=== PATIENT | female | born 1955 | race Caucasian/White ===

== ENCOUNTER → 2018-09-25 07:55 | Outpatient (CLI) | payer MEDICAID | END | disposition home or self-care (01) | LOC: D.US 07:55 | DX: R10.11 Right upper quadrant pain (principal) ==

== ENCOUNTER 2019-03-11 09:50 | Emergency (ER) | payer MEDICAID ==
[~2019-03-11] VITALS: Ht 160 cm; Wt 43.1 kg
[2019-03-11 09:53] VITALS: Ht 160 cm; Wt 43.1 kg
[2019-03-11] MEDS ORDERED: XANAX2 MG PO (09:57)
[2019-03-11] MEDS ORDERED: SYNTHROID112 MCG PO (09:57)
[2019-03-11] MEDS ORDERED: NEURONTIN 300300 MG PO (09:58)
[2019-03-11] MEDS ORDERED: ULTRAM50 MG PO (09:58)
[2019-03-11] MEDS ORDERED: TRAZODONE HCL150 MG PO (09:58)
[2019-03-11] MEDS ORDERED: VITAMIN D10000 UNI1 PO (09:59)
[2019-03-11] MEDS ORDERED: VITAMIN B-12100 MCG PO (09:59)
[2019-03-11] MEDS ORDERED: HEMP OIL (10:00)
[2019-03-11] MEDS ORDERED: L-ARGININE500 MG PO (10:01)
[2019-03-11] MEDS ORDERED: ASHWAGANDHA (10:01)
[2019-03-11 10:53] LABS: APPEARANCE CLOUDY (CLEAR); BACTERIA MODERATE /hpf (NONE SEEN); BILIRUBIN NEGATIVE (NEGATIVE); COLOR YELLOW (YELLOW); EPITHELIAL CELLS 0-5 /hpf (0-5); GLUCOSE NEGATIVE (NEGATIVE); KETONE NEGATIVE (NEGATIVE); NITRITE NEGATIVE (NEGATIVE); PROTEIN TRACE mg/dL (NEGATIVE); SPECIFIC GRAVITY 1.015 (1.005-1.020); UROBILINOGEN NORMAL (NORMAL); WHITE CELLS - URINE >50 /hpf (0-5)
[2019-03-11 10:54] LABS: MUCUS <1+ /lpf (NONE SEEN)
[2019-03-11 10:56] LABS: BASOPHILS 0.3 % (0-2); EOSINOPHILS 0.2 % (0-7); HEMATOCRIT 35.6 % (36.0-48.0); HEMOGLOBIN 11.6 g/dL (12-16); IMMATURE GRANULOCYTES 0.1 % (0-5); LYMPHOCYTES 9.7 % (15-50); MCH 30.2 pg (26.0-34.0); MCHC 32.6 g/dL (31.0-37.0); MCV 92.7 fL (80.0-100.0); MEAN PLATELET VOLUME 10.3 fL (7.4-10.4); MONOCYTES 4.5 % (2-11); NEUTROPHILS 85.2 % (40-80); PLATELET COUNT 190 10x3/uL (130-400); RBC 3.84 10x6/uL (4.00-5.40); RDW 12.8 % (11.5-14.5); WBC 9.1 10x3/uL (4.8-10.8)
[2019-03-11 11:00] LABS: ALBUMIN 4.4 g/dL (3.4-5.0); ALKALINE PHOSPHATASE 51 U/L (46-116); ALT (SGPT) 34 U/L (10-68); BILIRUBIN - TOTAL 0.51 mg/dL (0.2-1.3); CALC OSMOLALITY 283 mosm/kg (275-300); CALCIUM 8.8 mg/dL (8.5-10.1); CARBON DIOXIDE 30.7 mmol/L (21.0-32.0); CHLORIDE - SERUM 104 mmol/L (98-107); CREATININE - SERUM 0.7 mg/dL (0.6-1.3); GLUCOSE 100 mg/dL (74-106); POTASSIUM - SERUM 3.7 mmol/L (3.5-5.1); PROTEIN - SERUM 7.6 g/dL (6.4-8.2); SODIUM 140 mmol/L (136-145); UREA NITROGEN 26 mg/dL (7-18); eGFR NON AFRICAN AMERICAN 90 mL/min (90-120)
[2019-03-11 11:04] LABS: LIPASE 173 U/L (73-393); TROPONIN-I < 0.017 ng/mL (0.000-0.060)
[2019-03-11] MEDS ORDERED: KEFLEX500 MG PO (12:17)
[2019-03-11 14:16] VITALS: BP 134/78
== END 2019-03-11 14:18 | disposition home or self-care (01) ==
LOC: D.ER 09:50
PROVIDERS: Family Medicine
DX: N39.0 Urinary tract infection, site not specified (principal)